=== PATIENT | female | born 1950 | race Caucasian/White ===

== ENCOUNTER 2018-10-07 08:27 | Emergency (ER) | payer MEDICARE, BC ==
[2018-10-07] MEDS ORDERED: Fluorescein Opthalmic Strip ONE (08:47)
== END 2018-10-07 09:10 | disposition home or self-care (01) ==
LOC: SCSER 08:27
DX: S05.02XA Injury of conjunctiva and corneal abrasion without foreign body, left eye, initial encounter (principal); E11.9 Type 2 diabetes mellitus without complications; E78.5 Hyperlipidemia, unspecified; I10 Essential (primary) hypertension; J44.9 Chronic obstructive pulmonary disease, unspecified; F17.210 Nicotine dependence, cigarettes, uncomplicated; W22.8XXA Striking against or struck by other objects, initial encounter
CPT/HCPCS: 99283